=== PATIENT | female | born 1960 | race Two or more races ===

== ENCOUNTER 2016-11-30 15:05 | Emergency (ER) | payer OTHER ==
[2016-11-30] MEDS ORDERED: LIDOCAINE 2%/EPI 1:100,000 20 ML VIAL. ONE (15:27)
[2016-11-30] MEDS: LIDOCAINE 2%/EPI 1:100,000 20 ML VIAL. IJ ONE (15:30)
[2016-11-30] MEDS ORDERED: CEPH500T PO (15:52)
[2016-11-30] MEDS ORDERED: HYDR-971 PO (15:52)
--- NOTE | 2016-11-30 15:57 | PHYS DOC ---
General Chief Complaint: LACERATION/AVULSION Stated Complaint: LACERATIONS Time Seen by MD: 15:25 Source: patient Exam Limitations: no limitations Problems: History of Present Illness Initial Comments Pt is 56/F to ED c/o right wrist and left knee laceration. Pt working removing wallpaper with metal scraper, accidentally slipped with the blade and cut right wrist. Applied pressure and controlled bleeding, kept working and blade slipped again causing left knee laceration. This wound gaping , pt applied pressure and came for evaluation. Td is UTD, no pain unless wounds are brionna/moved. No pulsatile bleeding, no other prearrival treatment. Timing/Duration: 1/2 hour Severity: moderate Modifying Factors: worse with movement, improves with rest Associated Symptoms: other Allergies: Coded Allergies: No Known Drug Allergies (Unverified , 11/30/16) Past Medical History Medical History: no pertinent history Surgical History: noncontributory (thyroidectomy) Social History Smoker: non-smoker Alcohol: occasionally Drugs: none Review of Systems Constitutional: denies chills, denies diaphoresis, denies fever Respiratory: denies cough, denies shortness of breath, denies wheezing Cardiovascular: denies chest pain, denies palpitations, denies syncope Gastrointestinal: denies diarrhea, denies nausea, denies vomiting Musculoskeletal: denies back pain, denies joint swelling, denies neck pain Skin: see HPI Psychiatric/Neurological: denies headache, denies numbness, denies paresthesia Hematologic/Lymphatic: denies blood clots, denies easy bleeding, denies easy bruising Physical Exam General Appearance: WD/WN, no apparent distress Ear, Nose, Throat: hearing grossly normal, normal ENT inspection Neck: non-tender, supple Respiratory: normal breath sounds, no respiratory distress Cardiovascular: normal peripheral pulses, regular rate, rhythm Back: no CVA tenderness, no vertebral tenderness Extremities: normal range of motion, normal inspection Neurologic/Psychiatric: garnett fixer II-XII nml as tested, no motor/sensory deficits, alert, normal mood/affect, oriented x 3 Skin: normal color, warm/dry (two lacerations as described above) Laceration/Wound Repair Laceration/Wound Repair : Wound Location: upper extremity (R lateral wrist) Wound's Depth, Shape: superficial, linear Wound Length (cm): 1 Wound Explored: clean Irrigated w/ Saline (ccs): 50 Betadine Prep?: Yes Anesthesia: Lidocaine w/ Epi Volume Anesthetic (ccs): 2 Wound Debrided: minimal Wound Repaired With: sutures (gricelda) Number of Sutures: 1 (staple) Sterile Dressing Applied?: Yes Splint Applied?: No Progress Informed consent. Sterile technique. Analgesia with 2% lido/epi (5mL) Betadine wash with NS irrigation. 1 staple with good wound edge approximation. Tolerated well no complications, see departure for wound care. Additional Procedures Progress Laceration repair #2 Left patella Into adipose, linear 3cm appears clean no FB. Irrigated with NS 50cc, betadine prep. 15 mL 2% lido w/epi analgesia. 6 gricelda with good wound edge approximation. Tolerated well no complications. See departure for wound care. Departure Time of Disposition: 15:53 Disposition: 01 HOME, SELF-CARE Diagnosis: 1cm right wrist laceration, 3cm left knee lacerati Condition: IMPROVED Patient Instructions: Knee Immobilizer, [id number], Staple Wound Closure, [id number] Additional Instructions: Wear knee immobilizer as needed to prevent opening left knee laceration. Keep covered with sterile dressing until completely healed. Keep wounds dry for 48 hours. After 48 hours wash briefly twice daily with soap and warm water, blot dry. Change dressing and apply OTC triple antibiotic ointment after each wash. Wrist gricelda can be removed in 7 days. Knee gricelda will need 10-14 days. Follow up with your doctor or return to ED in 7 days for wrist staple removal and knee wound check. Rx: cephalexin, norco 5mg #10 Return to ED with new or changing symptoms. CARISSA OROPEZA DO Nov 30, 2016 15:57
[2016-11-30] MEDS ORDERED: LIDOCAINE 1% Multi-Dose 20 ML VIAL. ONE (16:09)
[2016-11-30] MEDS: CEFTRIAXONE IM 1 GM VIAL. IM ONE (16:13)
[2016-11-30 16:30] VITALS: BP 144/78
== END 2016-11-30 16:30 | disposition home or self-care (01) ==
LOC: ER 15:05
DX: S81.012A Laceration without foreign body, left knee, initial encounter (principal); S61.511A Laceration without foreign body of right wrist, initial encounter; W45.8XXA Other foreign body or object entering through skin, initial encounter; Y93.89 Activity, other specified; Y99.8 Other external cause status; Y92.89 Other specified places as the place of occurrence of the external cause
CPT/HCPCS: 12002; 96372; 99283; J0696

== ENCOUNTER 2016-12-08 12:06 | Emergency (ER) | payer OTHER ==
[~2016-12-08 12:06] MED LIST: CEPH500T PO; HYDR-971 PO
[2016-12-08 12:08] VITALS: BP 127/73
--- NOTE | 2016-12-08 12:36 | ED.ADGEN ---
Past History Past Medical History: No Pertinent History Past Surgical History: Other Alcohol Use: Occasionally Drug Use: None Adult General Chief Complaint Chief Complaint Suture removal HPI HPI Patient is a 56 year old female who presents for suture removal. She had gricelda placed to her left knee and her right wrist a days ago when she asked on cut herself. She states the wounds have been doing well and seemed to be well approximated. No drainage. No fevers. Review of Systems Review of Systems Constitutional: Denies fever or chills [] Respiratory: Denies shortness of breath [] Integument: Per history of present illness Neurologic: Denies headache Allergies Allergies Allergies Coded Allergies Type Severity Reaction Last Updated Verified No Known Drug Allergies 11/30/16 No Physical Exam Physical Exam Constitutional: Well developed, well nourished, no acute distress, non-toxic appearance. [] Lungs & Thorax: No respiratory distress Skin: Warm, dry, approximated knee laceration, no erythema, right wrist shows minimal erythema, well approximated, no drainage Back: No tenderness, no CVA tenderness. [] Extremities: No tenderness, no cyanosis, no clubbing, ROM intact, no edema. [] Neurologic: Alert and oriented X 3, normal motor function, normal sensory function, no focal deficits noted. [] Psychologic: Affect normal, judgement normal, mood normal. [] Current Patient Data Vital Signs Vital Signs Date Time Temp Pulse Resp B/P Pulse Ox O2 Delivery O2 Flow Rate FiO2 12/08/16 12:08 98.2 72 18 98 Room Air EKG EKG [] Radiology/Procedures Radiology/Procedures [] Course & Med Decision Making Course & Med Decision Making Pertinent Labs and Imaging studies reviewed. (See chart for details) removed 1/2 gricelda, mild gaping of the knee. Pt would like them all removed, understanding risk. Steristrips placed. Wrist staple removed. care instructions given. Final Impression Final Impression knee laceration wrist laceration visit for suture removal[] Problems: Dragon Disclaimer Dragon Disclaimer This electronic medical record was generated, in whole or in part, using a voice recognition dictation system. ROB WALLACE MD Dec 08, 2016 12:36
== END 2016-12-08 12:23 | disposition home or self-care (01) ==
LOC: ER 12:06
DX: S81.012D Laceration without foreign body, left knee, subsequent encounter (principal); S61.511D Laceration without foreign body of right wrist, subsequent encounter; X58.XXXD Exposure to other specified factors, subsequent encounter; Y99.8 Other external cause status; Y92.89 Other specified places as the place of occurrence of the external cause
CPT/HCPCS: 99282